=== PATIENT | female | born 1945 | race Asian ===

== ENCOUNTER 2018-10-08 16:35 | Emergency (ER) | payer OTHER ==
[~2018-10-08] VITALS: Ht 165.1 cm; Wt 68.1 kg
[2018-10-08 16:43] VITALS: BP 155/83; Ht 165.1 cm; Wt 68.1 kg
== END 2018-10-08 20:18 | disposition left against medical advice (07) ==
LOC: ED 16:35
DX: M79.642 Pain in left hand (principal)

== ENCOUNTER 2018-11-04 18:35 | Emergency (ER) | payer OTHER ==
[~2018-11-04] VITALS: Ht 162.6 cm; Wt 66.7 kg
[2018-11-04 19:07] VITALS: Ht 162.6 cm; Wt 66.7 kg
[2018-11-05 00:09] VITALS: BP 135/83
== END 2018-11-05 00:09 | disposition home or self-care (01) ==
LOC: ED 18:35
DX: S29.011A Strain of muscle and tendon of front wall of thorax, initial encounter (principal); S16.1XXA Strain of muscle, fascia and tendon at neck level, initial encounter; V48.0XXA Car driver injured in noncollision transport accident in nontraffic accident, initial encounter; Y93.I9 Activity, other involving external motion; Y92.488 Other paved roadways as the place of occurrence of the external cause; Y99.8 Other external cause status
CPT/HCPCS: Q0092

== ENCOUNTER 2018-11-09 14:02 | Emergency (ER) | payer OTHER ==
[2018-11-09 16:02] VITALS: BP 130/81
== END 2018-11-09 16:20 | disposition home or self-care (01) ==
LOC: ED 14:02
DX: S22.20XA Unspecified fracture of sternum, initial encounter for closed fracture (principal); V49.88XA Car occupant (driver) (passenger) injured in other specified transport accidents, initial encounter; Y93.I9 Activity, other involving external motion; Y92.413 State road as the place of occurrence of the external cause; Y99.8 Other external cause status